=== PATIENT | female | born 2000 | race Two or more races ===

== ENCOUNTER 2024-05-11 01:40 | Emergency (ER) | payer OTHER ==
[~2024-05-11] VITALS: Ht 175.3 cm; Wt 50.8 kg
[2024-05-11 04:59] VITALS: BP 129/91; PULSE 60; RESP 16; TEMP 97.5; O2SAT 100
[2024-05-11] MEDS ORDERED: NAPR-746 PO (06:57)
[2024-05-11] MEDS ORDERED: AMOX875T3 PO (06:57)
[2024-05-11] MEDS: HYDROcodone-ACET 5/325MG TAB PO ONE (06:57)
== END 2024-05-11 07:22 | disposition home or self-care (01) ==
LOC: ER 01:40
DX: H66.91 Otitis media, unspecified, right ear (principal)

== ENCOUNTER 2025-04-19 01:55 | Emergency (ER) | payer OTHER ==
[~2025-04-19] VITALS: Ht 175.3 cm; Wt 52.3 kg
[~2025-04-19 01:55] MED LIST: AMOX875T3 PO; NAPR-746 PO
--- NOTE | 2025-04-19 02:06 | ED.PDOC ---
General HPI Comments C/C of dysuria, hematuria, frequency and pelvic pain, 05/16. Pt states she tried to treat self for UTI symtpoms with OTC Azo, with no relief. Denies PMH. NKDA. Afebrile. 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 Family History Family History: Reviewed,noncontributory to illness Social History Smoker: Non-Smoker Alcohol: Denies ETOH Use Drugs: Denies Drug Use Lives In: Home Constitutional: denies: chills, diaphoresis, fatigue, fever, malaise, sweats, weakness, others EENTM: denies: blurred vision, double vision, ear bleeding, ear discharge, ear drainage, ear pain, ear ringing, eye pain, eye redness, hearing loss, mouth pain, mouth swelling, nasal discharge, nose bleeding, nose congestion, nose pain, photophobia, tearing, throat pain, throat swelling, voice changes, others Cardiovascular: denies: chest pain, dizzy spells, diaphoresis, Dyspnea on exertion, edema, irregular heart beat, left arm pain, lightheadedness, palpitations, PND, syncope, others Gastrointestinal: denies: abdomen distended, abdominal pain, blood streaked bowels, constipated, diarrhea, dysphagia, difficulty swallowing, hematemesis, melena, nausea, poor appetite, poor fluid intake, rectal bleeding, rectal pain, vomiting, others Genitourinary: reports: burning, frequency, pain; denies: abnormal vagina bleeding, dyspareunia, dysuria, flank pain, hematuria, incontinence, , vagina discharge, urgency, others Neurological: denies: dizziness, fainting, headache, left sided numbness, left sided weakness, numbness, paresthesia, pre-existing deficit, right sided numbness, right sided weakness, seizure, speech problems, tingling, tremors, weakness, others Musculoskeletal: denies: back pain, gout, joint pain, joint swelling, muscle pain, muscle stiffness, neck pain, others Integumetry: denies: bruises, change in color, change in hair/nails, dryness, laceration, lesions, lumps, rash, wounds, others Allergic/Immunocompromised: denies: Difficulty Healing, Frequent Infections, Hives, Itching, others Hematologic/Lymphatic: denies: anemia, blood clots, easy bleeding, easy bruising, swollen glands, others Endocrine: denies: excessive hunger, excessive sweating, excessive thirst, excessive urination, flushing, intolerance to cold, intolerance to heat, unexplained weight gain, unexplained weight loss, others Psychiatric: denies: anxiety, bipolar disorder, depression, hopeless, panic dis order, schizophrenia, sleepless, suicidal, others Physical Exam General Appearance: No Apparent Distress, Normal HEENT: Pharynx Normal Neck: Full Range of Motion, Non-Tender Respiratory: Lungs Clear, No Respiratory Distress, Normal Breath Sounds Cardiovascular: No Murmur, Normal Peripheral Pulses, Regular Rate/Rhythm Breast Exam: Deferred Gastrointestinal: No Organomegaly, Non Tender, No Pulsatile Mass, Normal Bowel Sounds, Soft, Suprapubic (TENDERNESS ON PALPATION), Other (NEGATIVE CVA TENDERNESS) Genitalia: Deferred Pelvic: Deferred Rectal: Deferred Extremities: Normal range of motion, Non-tender, No pedal edema Musculoskeletal : Apperance: Normal Neurologic: Alert, No Motor Deficits, Normal Affect, Normal Mood, No Sensory Deficits Cerebellar Function: Normal Reflexes: Normal Skin: Dry, Normal Color, Warm Lymphatic: No Adenopathy Was a procedure done? Was a procedure done?: No Differential Diagnosis Kidney stone (Female): Pyelonephritis, Urinary obstruction Urinary Problem (Female): UTI X-Ray, Labs, Meds, VS Vital Signs Date Time Temp Pulse Resp B/P (MAP) Pulse Ox O2 Delivery O2 Flow Rate FiO2 04/19/25 01:55 99.0 100 17 133/122 (126) 100 99.0 Lab Test 04/19/25 00:00 Range/Units Urine Color Light-red Yellow Urine Clarity Ex.turbid Clear Urine pH 6.5 5.0-9.0 Urine Specific [place] 1.014 1.001-1.035 Urine Protein 2+ H Negative Urine Ketones Negative Negative Urine Blood 3+ H Negative /uL Urine Nitrite Negative Negative Urine Bilirubin Negative Negative Urine Urobilinogen Normal Negative mg/dL Urine Leukocyte Esterase 3+ Negative /uL Urine RBC 3076 0 - 4 /hpf Urine Microscopic WBC 1385 H 0-5 /HPF Urine Squamous Epithelial Cells Few <5 /hpf Urine Bacteria None seen None Seen /hpf Urine Glucose Normal Normal mg/dL X-Ray, Labs, Meds, VS Comment UA POSITIVE FOR INFECTION. PATIENT GIVEN ROCEPHIN 1 G IM AND TORADOL 60 MG IM REPORTS IMPROVEMENT IN PAIN AND SYMPTOMS REQUESTING DISCHARGE AT THIS TIME. SCRIPT TRIAL OF BACTRIM POSSIBLE EARLY PYELO. ADVISED TO TAKE MEDICATIONS PRESCRIBED SIDE EFFECTS DISCUSSED. REST INCREASE P.O. FLUIDS WITH ELECTROLYTES AVOID CAFFEINATED DRINKS FOLLOW UP WITH YOUR PCP IN 2-3 DAYS CONSIDER REPEAT URINE. ADVISED ON ER RETURN PRECAUTIONS PATIENT INDICATED UNDERSTANDING AND AGREES WITH DISCHARGE PLAN OF CARE. Time of 1ST Reevaluation: 02:05 Reevaluation 1ST: Unchanged Time of 2ND Reevaluation: 03:22 Reevaluation 2ND: Improved Patient Education/Counseling: Diagnosis, Treatment, Prognosis, Need For Follow Up Family Education/Counseling: No Family Present Departure 1 Departure Time of Disposition: 03:21 Impression: Primary Impression: Cystitis with hematuria Disposition: 01 HOME / SELF CARE / HOMELESS Condition: Stable e-Prescriptions Sulfamethoxazole W/Trimethopri (Bactrim Ds Tablet) 1 Tab Tb 1 TAB PO BID for 7 Days, #14 TAB Prov: JOHN ARROYO 04/19/25 Discharged With: Self Critical Care Note Critical Care Time?: No Stability Stability form required: JOHN Collazo Apr 19, 2025 02:06
[2025-04-19 02:33] LABS: Urine Bacteria None Seen /hpf (None Seen)
[2025-04-19 03:07] LABS: Urine Blood 3+ /uL (Negative); Urine Clarity Ex.Turbid (Clear); Urine Color Light-Red (Yellow); Urine Protein, UAD 2+ (Negative); Urine Specific Gravity 1.014 (1.001-1.035); Urine Squamous Epithelial Cell FEW /hpf (<5); Urine Urobilinogen Normal (Negative); Urine WBC 1385 /HPF (0-5); Urine pH 6.5 (5.0-9.0)
[2025-04-19] MEDS ORDERED: BACDST PO (03:21)
[2025-04-19] MEDS: KETOROLAC TROMETH 60MG/2ML VIAL IM ONE (03:45)
[2025-04-19] MEDS: cefTRIAXone SOD 1,000 MG VL IM ONE (03:45)
[2025-04-19 03:47] VITALS: BP 123/90; PULSE 90; RESP 16; TEMP 98; O2SAT 100
== END 2025-04-19 03:47 | disposition home or self-care (01) ==
LOC: ER 01:55
DX: N30.91 Cystitis, unspecified with hematuria (principal); Z79.899 Other long term (current) drug therapy
CPT/HCPCS: 81001; 96372; 99284; J0696; J1885